=== PATIENT | female | born 1985 | race African-American/Black ===

== ENCOUNTER 2021-04-14 14:15 | Inpatient (IN) | payer SELFPAY ==
[~2021-04-14] VITALS: Ht 160 cm; Wt 59.0 kg
[2021-04-14] MEDS ORDERED: ONDANSETRON HCL INJ 2MG/ML 2ML 2 MG/ML VIAL IV PRN ×3 (14:45→16:15)
[2021-04-14] MEDS ORDERED: SODIUM CHLORIDE 0.9% 1000ML 1,000 ML IV ONE (14:45)
[2021-04-14] MEDS ORDERED: SODIUM BICARBONATE 8.4% INJ 50 ML SYR IV STA (14:59)
[2021-04-14] MEDS ORDERED: INSULIN REGULAR, HUMAN 100 UNIT/1 ML IV ONE (15:00)
[2021-04-14 15:02] LABS: BASOPHILS # (AUTO) 0.3 (0.0-0.1); BASOPHILS % 0.8 % (0.0-1.0); EOSINOPHILS % 0.1 % (0.0-6.0); HEMATOCRIT 54.8 % (34.2-44.1); HEMOGLOBIN 16.5 g/dL (12.0-16.0); LYMPHOCYTES # (AUTO) 4.7 (1.0-3.2); LYMPHOCYTES % 14.9 % (18.0-39.1); MEAN CORPUSCULAR HEMOGLOBIN 29.7 pg (28-32); MEAN CORPUSCULAR HGB CONC 30.1 g/dL (31-35); MEAN CORPUSCULAR VOLUME 98.7 fL (81-99); MONOCYTES # (AUTO) 3.2 (0.2-0.8); MONOCYTES % 10.3 % (4.4-11.3); NEUTROPHILS % 70.2 % (38.7-80.0); PLATELET COUNT 456 x10e3/uL (140-360); RED BLOOD COUNT 5.55 x10e6/uL (3.6-5.1); RED CELL DISTRIBUTION WIDTH 13.9 % (11.7-14.4)
[2021-04-14 15:03] LABS: ABG PH 6.95 (7.35-7.45)
[2021-04-14 15:04] LABS: ABG HCO3 2 mmol/L (22-26); ABG PCO2 10 mmHg (35-45); ABG PO2 149 mmHg (80-105); ABG TCO2 6
[2021-04-14] MEDS ORDERED: INSULIN REGULAR, HUMAN 3ML VL 100 UNIT in SODIUM CHLORIDE 0.9% 99 ML IV SCH ×4 (15:15→21:00)
[2021-04-14] MEDS ORDERED: MAGNESIUM SULF 1GRAM/DEXTROSE 100 ML IV PRN (15:15)
[2021-04-14] MEDS ORDERED: SODIUM CHLORIDE 0.9% 1000ML 2,000 ML IV ONE (15:15)
[2021-04-14 15:17] LABS: MAGNESIUM 2.7 MG/DL (1.3-2.1)
[2021-04-14 15:18] LABS: ALANINE AMINOTRANSFERASE 16 IU/L (0-55); ALBUMIN/GLOBULIN RATIO 0.8 (0.8-2.0); ALKALINE PHOSPHATASE 143 IU/L (40-150); BLOOD UREA NITROGEN 24 mg/dL (7-26); BUN/CREATININE RATIO 10 (6-25); CALCIUM 9.1 mg/dL (8.4-10.2); CHLORIDE 101 mmol/L (98-107); CREATININE, SERUM 2.47 mg/dL (0.57-1.11); SODIUM 139 mmol/L (136-145)
[2021-04-14 15:21] LABS: ANION GAP 39.4 mmol/L (8-16); EST GLOMERULAR FILTRATION RATE 27 ML/MIN (60-)
[2021-04-14 15:22] LABS: CARBON DIOXIDE < 5 mmol/L (22-29); POTASSIUM 6.4 mmol/L (3.5-5.1)
[2021-04-14 15:33] LABS: GLUCOSE 793 mg/dL (74-118)
[2021-04-14] MEDS: POTASSIUM CHLORIDE 20MEQ/100ML 200 ML IV PRN (15:34)
[2021-04-14 15:39] LABS: CLARITY,URINE SL CLOUDY (CLEAR); COLOR,URINE YELLOW (YELLOW); KETONES,URINE 2+ (NEGATIVE); LEUKOCYTE ESTERASE ,URINE NEGATIVE (NEGATIVE); NITRITE,URINE NEGATIVE (NEGATIVE); PROTEIN,URINE DIPSTICK 2+ (NEGATIVE)
[2021-04-14 15:40] LABS: URINE UROBILINOGEN 0.2 mg/dL (0.2 - 1)
[2021-04-14 15:49] LABS: AMORPHOUS SEDIMENT,URINE MODERATE (FEW); BACTERIA,URINE MANY /HPF; EPITHELIAL CELLS,URINE FEW /LPF; MUCUS,URINE FEW (RARE)
[2021-04-14] MEDS ORDERED: CALCIUM GLUCONATE 10% INJ 0.465 MEQ/ML VIAL ONE (15:58)
[2021-04-14] MEDS ORDERED: CALCIUM GLUCONATE 10% INJ 4.65 MEQ in SODIUM CHLORIDE 0.9% 50ML 50 ML IV ONE (16:00)
[2021-04-14] MEDS ORDERED: Vancomycin IV 1 GM in SODIUM CHLORIDE 0.9% 250ML 250 ML IV SCH (16:00)
[2021-04-14 16:15] VITALS: BP 119/64
[2021-04-14] MEDS ORDERED: ACETAMINOPHEN 325 MG TAB PO PRN (16:15)
[2021-04-14] MEDS ORDERED: ZOLPIDEM TARTRATE 5 MG TAB PO PRN (16:15)
[2021-04-14] MEDS: DEXTROSE 5%/0.45% SOD CHL 1,000 ML IV SCH ×2 (16:43→20:21)
[2021-04-14 16:45] VITALS: BP 122/68
[2021-04-14] MEDS: SODIUM CHLORIDE 0.9% 1000ML 1,000 ML IV SCH ×3 (16:46→21:09)
[2021-04-14] MEDS: CEFEPIME 1 GM in SODIUM CHLORIDE 0.9% 50ML 50 ML IV SCH (17:02)
[2021-04-14] MEDS: Vancomycin IV 1 GM in SODIUM CHLORIDE 0.9% 250ML 250 ML IV SCH (17:34)
[2021-04-14 17:45] VITALS: BP 106/62
[2021-04-14 18:30] VITALS: BP 95/55
[2021-04-14 19:38] LABS: BLOOD UREA NITROGEN 17 mg/dL (7-26); BUN/CREATININE RATIO 13 (6-25); CALCIUM 7.3 mg/dL (8.4-10.2); CHLORIDE 123 mmol/L (98-107); CREATININE, SERUM 1.36 mg/dL (0.57-1.11); EST GLOMERULAR FILTRATION RATE 53 ML/MIN (60-); GLUCOSE 239 mg/dL (74-118); POTASSIUM 4.5 mmol/L (3.5-5.1); SODIUM 150 mmol/L (136-145)
[2021-04-14 19:57] LABS: ANION GAP 26.5 mmol/L (8-16)
[2021-04-14 19:58] LABS: CARBON DIOXIDE < 5 mmol/L (22-29)
[2021-04-14] MEDS ORDERED: SODIUM BICARBONATE 8.4% 50 ML VIAL IV STA (20:47)
[2021-04-15] VITALS (15 sets, daily range): BP systolic 81–122; BP diastolic 56–89
[2021-04-15 01:44] LABS: ANION GAP 16.7 mmol/L (8-16); CALCIUM 8.2 mg/dL (8.4-10.2); CREATININE, SERUM 1.33 mg/dL (0.57-1.11); MAGNESIUM 2.1 MG/DL (1.3-2.1); POTASSIUM 3.7 mmol/L (3.5-5.1)
[2021-04-15] MEDS: SODIUM CHLORIDE 0.9% 1000ML 1,000 ML IV SCH (03:15)
[2021-04-15] MEDS: DEXTROSE 5%/0.45% SOD CHL 1,000 ML IV SCH (03:45)
[2021-04-15 05:39] LABS: BASOPHILS % 0.2 % (0.0-1.0); EOSINOPHILS % 0.1 % (0.0-6.0); HEMATOCRIT 38.4 % (34.2-44.1); LYMPHOCYTES # (AUTO) 0.9 (1.0-3.2); LYMPHOCYTES % 6.9 % (18.0-39.1); MEAN CORPUSCULAR HEMOGLOBIN 29.7 pg (28-32); MEAN CORPUSCULAR HGB CONC 34.6 g/dL (31-35); MEAN CORPUSCULAR VOLUME 85.7 fL (81-99); MONOCYTES # (AUTO) 1.2 (0.2-0.8); MONOCYTES % 9.3 % (4.4-11.3); NEUTROPHILS # (AUTO) 10.4 (2.1-6.9); NEUTROPHILS % 81.5 % (38.7-80.0); PLATELET COUNT 270 x10e3/uL (140-360); RED BLOOD COUNT 4.48 x10e6/uL (3.6-5.1); RED CELL DISTRIBUTION WIDTH 13.9 % (11.7-14.4)
[2021-04-15 05:48] LABS: HEMOGLOBIN 13.3 g/dL (12.0-16.0)
[2021-04-15] MEDS: CEFEPIME 1 GM in SODIUM CHLORIDE 0.9% 50ML 50 ML IV SCH ×2 (06:11→17:32)
[2021-04-15 06:14] LABS: ANION GAP 13.2 mmol/L (8-16); CALCIUM 8.5 mg/dL (8.4-10.2); CREATININE, SERUM 1.3 mg/dL (0.57-1.11); POTASSIUM 3.2 mmol/L (3.5-5.1)
[2021-04-15] MEDS ORDERED: INSULIN REGULAR IN 0.9 % NACL 100 ML IV ONE (06:28)
[2021-04-15] MEDS: POTASSIUM CHLORIDE 20MEQ/100ML 200 ML IV PRN (07:49)
[2021-04-15] MEDS ORDERED: Vancomycin IV 1 GM in SODIUM CHLORIDE 0.9% 250ML 250 ML IV SCH (09:00)
[2021-04-15 11:17] LABS: ANION GAP 14.1 mmol/L (8-16); CALCIUM 8.9 mg/dL (8.4-10.2); CREATININE, SERUM 1.09 mg/dL (0.57-1.11); MAGNESIUM 2.1 MG/DL (1.3-2.1); POTASSIUM 3.1 mmol/L (3.5-5.1)
[2021-04-15] MEDS ORDERED: CEPACOL SORE THROAT LOZENGES PO PRN (12:00)
[2021-04-15] MEDS ORDERED: DEXTROSE 5% 1,000 ML IV SCH (12:15)
[2021-04-15] MEDS ORDERED: DEXTROSE 50% SYRINGE 50 ML IV PRN (12:15)
[2021-04-15] MEDS ORDERED: INSULIN GLARGINE 100 UNITS/ML VIAL SQ NR (12:15)
[2021-04-15] MEDS ORDERED: POTASSIUM CHLORIDE 20 MEQ TAB CR PO NR (12:15)
[2021-04-15] MEDS: INSULIN REGULAR, HUMAN 100 UNIT/1 ML SQ SCH ×2 (17:25→20:27)
[2021-04-15] MEDS: Vancomycin IV 1 GM in SODIUM CHLORIDE 0.9% 250ML 250 ML IV SCH (17:43)
[2021-04-16] VITALS (9 sets, daily range): BP systolic 112–123; BP diastolic 73–94
[2021-04-16] MEDS: CEFEPIME 1 GM in SODIUM CHLORIDE 0.9% 50ML 50 ML IV SCH ×2 (04:37→16:46)
[2021-04-16 05:41] LABS: BASOPHILS % 0.3 % (0.0-1.0); EOSINOPHILS # (AUTO) 0.2 (0.0-0.4); EOSINOPHILS % 2.5 % (0.0-6.0); HEMATOCRIT 38.2 % (34.2-44.1); LYMPHOCYTES # (AUTO) 1.8 (1.0-3.2); LYMPHOCYTES % 27.6 % (18.0-39.1); MEAN CORPUSCULAR HEMOGLOBIN 29.6 pg (28-32); MONOCYTES # (AUTO) 0.5 (0.2-0.8); MONOCYTES % 7.1 % (4.4-11.3); NEUTROPHILS % 61.7 % (38.7-80.0); PLATELET COUNT 212 x10e3/uL (140-360); RED BLOOD COUNT 4.39 x10e6/uL (3.6-5.1); RED CELL DISTRIBUTION WIDTH 14.4 % (11.7-14.4)
[2021-04-16 06:02] LABS: CALCIUM 8.3 mg/dL (8.4-10.2); CREATININE, SERUM 0.9 mg/dL (0.57-1.11)
[2021-04-16] MEDS: INSULIN REGULAR, HUMAN 100 UNIT/1 ML SQ SCH ×4 (07:58→21:33)
[2021-04-16] MEDS ORDERED: POTASSIUM CHLORIDE 20 MEQ TAB CR PO ONE (10:00)
[2021-04-16] MEDS ORDERED: ONDANSETRON HCL 4 MG ORAL DISINTEGRATING TAB PO PRN (12:30)
[2021-04-16] MEDS: METFORMIN HCL 500 MG TAB CR PO SCH (16:46)
[2021-04-16] MEDS: Vancomycin IV 1 GM in SODIUM CHLORIDE 0.9% 250ML 250 ML IV SCH (18:30)
[2021-04-17] VITALS (7 sets, daily range): BP systolic 110–129; BP diastolic 81–93
[2021-04-17] MEDS: CEFEPIME 1 GM in SODIUM CHLORIDE 0.9% 50ML 50 ML IV SCH ×2 (05:12→16:45)
[2021-04-17 06:28] LABS: BASOPHILS % 0.8 % (0.0-1.0); EOSINOPHILS # (AUTO) 0.1 (0.0-0.4); EOSINOPHILS % 1.6 % (0.0-6.0); HEMATOCRIT 45.5 % (34.2-44.1); HEMOGLOBIN 14.7 g/dL (12.0-16.0); LYMPHOCYTES # (AUTO) 1.4 (1.0-3.2); LYMPHOCYTES % 38.6 % (18.0-39.1); MEAN CORPUSCULAR HEMOGLOBIN 29.3 pg (28-32); MEAN CORPUSCULAR HGB CONC 32.3 g/dL (31-35); MEAN CORPUSCULAR VOLUME 90.6 fL (81-99); MONOCYTES # (AUTO) 0.3 (0.2-0.8); MONOCYTES % 8.4 % (4.4-11.3); NEUTROPHILS # (AUTO) 1.8 (2.1-6.9); NEUTROPHILS % 50.1 % (38.7-80.0); PLATELET COUNT 179 x10e3/uL (140-360); RED BLOOD COUNT 5.02 x10e6/uL (3.6-5.1); RED CELL DISTRIBUTION WIDTH 14.5 % (11.7-14.4)
[2021-04-17 07:01] LABS: ANION GAP 14.9 mmol/L (8-16); CALCIUM 8.8 mg/dL (8.4-10.2); CREATININE, SERUM 0.78 mg/dL (0.57-1.11); MAGNESIUM 1.8 MG/DL (1.3-2.1); PHOSPHORUS 2.1 MG/DL (2.3-4.7); POTASSIUM 3.9 mmol/L (3.5-5.1)
[2021-04-17] MEDS: METFORMIN HCL 500 MG TAB CR PO SCH ×2 (07:30→16:45)
[2021-04-17] MEDS: INSULIN REGULAR, HUMAN 100 UNIT/1 ML SQ SCH ×4 (07:34→21:00)
[2021-04-17] MEDS: Vancomycin IV 1 GM in SODIUM CHLORIDE 0.9% 250ML 250 ML IV SCH (18:39)
[2021-04-18] VITALS (8 sets, daily range): BP systolic 109–143; BP diastolic 61–102
[2021-04-18] MEDS: CEFEPIME 1 GM in SODIUM CHLORIDE 0.9% 50ML 50 ML IV SCH ×2 (05:34→17:02)
[2021-04-18 06:25] LABS: BASOPHILS % 0.7 % (0.0-1.0); EOSINOPHILS # (AUTO) 0.1 (0.0-0.4); EOSINOPHILS % 3.2 % (0.0-6.0); HEMATOCRIT 42.1 % (34.2-44.1); HEMOGLOBIN 14.2 g/dL (12.0-16.0); LYMPHOCYTES # (AUTO) 1.8 (1.0-3.2); LYMPHOCYTES % 44.2 % (18.0-39.1); MEAN CORPUSCULAR HEMOGLOBIN 29.6 pg (28-32); MEAN CORPUSCULAR HGB CONC 33.7 g/dL (31-35); MEAN CORPUSCULAR VOLUME 87.7 fL (81-99); MONOCYTES # (AUTO) 0.3 (0.2-0.8); MONOCYTES % 6.6 % (4.4-11.3); NEUTROPHILS # (AUTO) 1.8 (2.1-6.9); NEUTROPHILS % 45.1 % (38.7-80.0); PLATELET COUNT 203 x10e3/uL (140-360); RED CELL DISTRIBUTION WIDTH 13.7 % (11.7-14.4)
[2021-04-18 06:45] LABS: ALBUMIN 3.3 g/dL (3.5-5.0); ALBUMIN/GLOBULIN RATIO 0.9 (0.8-2.0); ANION GAP 15.8 mmol/L (8-16); CALCIUM 9.5 mg/dL (8.4-10.2); CREATININE, SERUM 0.83 mg/dL (0.57-1.11); POTASSIUM 3.8 mmol/L (3.5-5.1)
[2021-04-18] MEDS: INSULIN REGULAR, HUMAN 100 UNIT/1 ML SQ SCH ×4 (07:49→21:00)
[2021-04-18] MEDS: METFORMIN HCL 500 MG TAB CR PO SCH (07:50)
[2021-04-18] MEDS ORDERED: FLUCONAZOLE 100 MG TAB PO ONE (11:00)
[2021-04-18] MEDS ORDERED: DEXTROSE 50% SYRINGE 50 ML IV PRN (14:15)
[2021-04-18] MEDS ORDERED: NPH, HUMAN INSULIN ISOPHANE 100 UNIT/1 ML 3ML VIAL SQ SCH (21:00)
[2021-04-19 00:18] VITALS: BP 108/71
[2021-04-19] MEDS: CEFEPIME 1 GM in SODIUM CHLORIDE 0.9% 50ML 50 ML IV SCH (05:46)
[2021-04-19 06:00] VITALS: BP 139/85
[2021-04-19 06:43] LABS: BASOPHILS % 0.3 % (0.0-1.0); EOSINOPHILS # (AUTO) 0.1 (0.0-0.4); EOSINOPHILS % 3.5 % (0.0-6.0); HEMATOCRIT 38.4 % (34.2-44.1); LYMPHOCYTES # (AUTO) 1.5 (1.0-3.2); LYMPHOCYTES % 41.5 % (18.0-39.1); MEAN CORPUSCULAR HEMOGLOBIN 29.3 pg (28-32); MEAN CORPUSCULAR HGB CONC 33.9 g/dL (31-35); MEAN CORPUSCULAR VOLUME 86.7 fL (81-99); MONOCYTES # (AUTO) 0.3 (0.2-0.8); MONOCYTES % 8.4 % (4.4-11.3); NEUTROPHILS # (AUTO) 1.7 (2.1-6.9); PLATELET COUNT 186 x10e3/uL (140-360); RED BLOOD COUNT 4.43 x10e6/uL (3.6-5.1); RED CELL DISTRIBUTION WIDTH 13.2 % (11.7-14.4)
[2021-04-19 07:05] LABS: ALBUMIN/GLOBULIN RATIO 0.8 (0.8-2.0); ANION GAP 12.8 mmol/L (8-16); CALCIUM 9.5 mg/dL (8.4-10.2); CREATININE, SERUM 0.73 mg/dL (0.57-1.11); POTASSIUM 3.8 mmol/L (3.5-5.1)
[2021-04-19] MEDS ORDERED: NPH, HUMAN INSULIN ISOPHANE 100 UNIT/1 ML 3ML VIAL SQ SCH (07:30)
[2021-04-19] MEDS ORDERED: INSULIN REGULAR, HUMAN 100 UNIT/1 ML SQ SCH (07:30)
[2021-04-19 07:53] VITALS: BP 139/85
[2021-04-19 08:06] VITALS: BP 132/82
[2021-04-19] MEDS: INSULIN REGULAR, HUMAN 100 UNIT/1 ML SQ SCH ×2 (09:44→12:39)
[2021-04-19 11:12] VITALS: BP 123/82
[2021-04-19] MEDS ORDERED: HUMULIN N100 UNITS/ SQ ×2 (11:28→11:29)
[2021-04-19] MEDS ORDERED: HUMULIN R100 UNIT/2 SQ ×2 (11:29)
== END 2021-04-19 13:20 | disposition home or self-care (01) | DRG 638 ==
LOC: EDBD 14:15 → ER 14:22 → ERHOLD 15:21 → ICU 23:50 → MED/SURG 04-15 16:11
PROVIDERS: ADMIT Internal Medicine; ATTEND Internal Medicine
DX: E10.10 Type 1 diabetes mellitus with ketoacidosis without coma (principal); N17.9 Acute kidney failure, unspecified; N39.0 Urinary tract infection, site not specified; E87.6 Hypokalemia; E87.5 Hyperkalemia; Z20.822 Contact with and (suspected) exposure to COVID-19; E11.42 Type 2 diabetes mellitus with diabetic polyneuropathy; B37.9 Candidiasis, unspecified; Z79.4 Long term (current) use of insulin; Z88.0 Allergy status to penicillin; Z91.14 Patient's other noncompliance with medication regimen
CPT/HCPCS: 36415; 36600; 51700; 71045; 74176; 80048; 80053; 81001; 82805; 82948; 83036; 83605; 83690; 83735; 83880; 84100; 84702; 85025; 87040; 93005; 94799; 96372; 99285; J0610; J0692; J1815; J1817; J2405; J3370; J3475; J3480; J7030; J7050; J7070; U0002

== ENCOUNTER 2022-02-17 15:58 | Emergency (ER) | payer SELFPAY ==
[~2022-02-17] VITALS: Ht 160 cm; Wt 59.0 kg
[~2022-02-17 15:58] MED LIST: HUMULIN N100 UNITS/ SQ; HUMULIN R100 UNIT/2 SQ
== END 2022-02-17 18:54 | disposition home or self-care (01) ==
LOC: ER 16:05
DX: N64.4 Mastodynia (principal); E11.9 Type 2 diabetes mellitus without complications; J45.909 Unspecified asthma, uncomplicated
CPT/HCPCS: 99282